=== PATIENT | female | born 1970 | race Caucasian/White ===

== ENCOUNTER 2017-09-21 05:20 | Day surgery (SDC) | payer BC ==
[2017-09-20 11:59] LABS: HEMATOCRIT 44.8 % (36.0-48.0); HEMOGLOBIN 15.8 g/dL (12-16); MCH 34.5 pg (26.0-34.0); MCHC 35.3 g/dL (31.0-37.0); MCV 97.8 fL (80.0-100.0); MEAN PLATELET VOLUME 11.5 fL (7.4-10.4); RBC 4.58 10x6/uL (4.00-5.40); WBC 6.8 10x3/uL (4.8-10.8)
[~2017-09-21 05:20] MED LIST: ACETAMINOPHEN500 M1 PO; DEXILANT30 MG; DEXILANT30 MG PO; EFFEXOR75 MG PO; MOTRIN600 MG PO; NORCO 10/325 TA1 TA1 PO; PERCOCET 5/3251 TA1 PO; PRAVACHOL20 MG PO; QUESTRAN PACK4 G/PKT PO
[2017-09-21 08:33] VITALS: BMI 33.5
--- NOTE | 2017-09-21 12:19 | NUR ---
DR FITCH AWARE OF HEART RATE AND ORDERED NO TREATMENT IN RR. PAIN MEDICATION OFFERD AMD THE PATIENT DENIES THE NEED.
[2017-09-21] MEDS ORDERED: HYDROCODONE-APA1 TAB PO (14:28)
--- NOTE | 2017-09-21 16:16 | NUR ---
1413 1 NORCO 10MG PO FOR COMPLAINTS OF PAIN. Princess ISAACS R.N.
--- NOTE | 2017-09-21 16:23 | NUR ---
1435 IV D'FILI WITH CATH INTACT. DRESSED. GIVEN DISCHARGE INFORMATION, INCLUDING MED REC, RX"S 2: NORCO 10/325MG, COLACE 100MG, RTC APPT., & [facility] OPS D/C INSTRUCTIONS. PT VOICED UNDERSTANDING. TO PRIVATE CAR PER WHEELCHAIR BY VOLUNTEER. HOME WITH FRIEND, MEHRAN. Princess ISAACS R.N.
--- NOTE | 2017-09-24 10:04 | OP ---
PATIENT NAME: BRENNAN VILLASENOR MEDICAL RECORD: [id number] :74 LOCATION:[facility] ADMISSION DATE: SURGEON: JONNY PATRICIA MD DATE OF OPERATION: 09/21/2017 PREOPERATIVE DIAGNOSIS: Non-incarcerated incisional hernia. POSTOPERATIVE DIAGNOSIS: Incarcerated incisional hernia. PROCEDURE: Open incarcerated incisional hernia repair with mesh. SURGEON: Jonny Patricia MD MARKETING PLANNER: None. BLOOD LOSS: Minimal. ANESTHESIA: General. COMPLICATIONS: None. The risks, possible complications and alternatives to procedure were explained to the patient. She elects to proceed. OPERATIVE COURSE: The patient was conveyed to the operating room electively on 09/21/2017. General anesthesia was induced by the anesthesia staff. The abdomen and genitals were sterilely prepped and draped. A transverse incision was accomplished over the hernia defect in the right groin. This appears to have been a hernia through a Pfannenstiel incision. I dissected down to the hernia sac. I sharply cleaned the external oblique fascia from around the neck of the hernia. A secondary hernia was located medially. I entered the primary hernia sac. There was incarcerated omentum, which was taken down sharply. I then sharply cleaned the peritoneal surface inside of the abdomen from some adhesions. The adhesions were omental adhesions. I tried to create a prevesicular bladder flap from between the omentum and the abdominal wall and was unable to do this medially or superiorly. I then abandoned this approach. I excised the hernia sac. I elected to place an intraabdominal mesh. I placed an oval Ventrio mesh with the rough side toward the abdominal wall and the "slick side" toward the bowels. I then reapproximated the abdominal wall muscle and fascia in the right lower quadrant. The hernia was very large and essentially had blown up the entire inguinal floor of the right. I tacked the mesh superiorly with the SecureStrap Tacker. I ensured that there was no bowel entrapped between the mesh and the abdominal wall superiorly. I also ensured that the tacker had not injured any of the bowels. I then closed the abdominal wall with multiple interrupted horizontal mattress 0 Surgidac. I incorporated a portion of the mesh with these sutures. I then overran the fascial closure with a running #1 Vicryl. I used a sandwich type technique by placing a cut polypropylene mesh on top of the fascial repair. I sutured the mesh to the underlying fascia with a running 2-0 Prolene suture. I also sutured the 2-0 Prolene to the underlying fascial repair in the middle of the repair at a couple of sites. OPERATIVE REPORT [id number] BRENNAN VILLASENOR I irrigated with normal saline. Alessia's fascia was approximated with interrupted 3-0 Vicryl. The subdermis was approximated with interrupted 3-0 Vicryl. Skin was approximated with a running intracuticular 4-0 Vicryl. A sterile dressing was applied after the Dermabond had been applied. The patient was then extubated and conveyed to the post-anesthesia care unit where she was in stable condition. I am going to plan to send her home with [place] as well as Crystal. She is not to do any lifting or straining for 6 weeks as there is going to be a high likelihood of recurrence of the hernia due to its size and how thin her tissues were in the right lower quadrant. TRANSINT:[id number] Voice Confirmation ID: [id number] DOCUMENT ID: [id number] JONNY PATRICIA MD at 1004 CC: [id number] DICTATION DATE: 09/21/17 1308 CREDIT PROCESSOR: 09/21/17 1354 [facility] 09/21/[address] [address]
--- NOTE | 2017-09-24 10:04 | HP ---
PATIENT: BRENNAN VILLASENOR MEDICAL RECORD: [id number] ACCOUNT: [id number] LOCATION:[facility] : 74 ADMISSION DATE: 09/21/17 HISTORY AND PHYSICAL EXAMINATION CHIEF COMPLAINT: Hernia. HISTORY OF PRESENT ILLNESS: The patient has a large incisional hernia. This appears to be an incisional hernia from her Pfannenstiel incision. It is a right-sided hernia. The risks, possible complications, alternatives to an incisional hernia repair were explained to the patient. She elects to proceed. HOME MEDICINES: Effexor. ALLERGIES: SULFA, WHICH CAUSES HIVES. SOCIAL HISTORY: Smoker, I have advised her to quit smoking. PAST MEDICAL AND SURGICAL HISTORY: Cholecystectomy, sections times 2, total abdominal hysterectomy and bilateral salpingo-oophorectomy, history of gallstone pancreatitis. REVIEW OF SYSTEMS: Negative for CVA or seizures. Negative for renal disease or hepatitis. PHYSICAL EXAMINATION: GENERAL: The patient does not appear acutely ill. She does not appear chronically ill. VITAL SIGNS: Reviewed. EARS: External ears appear normal. EYES: Extraocular movements are intact. NECK: Trachea is midline. CHEST: No intercostal retractions. PULMONARY: Nonlabored, no stridor. ABDOMEN: Reducible right inguinal incisional hernia. IMPRESSION: Incisional hernia. PLAN: Open incisional hernia repair with mesh. TRANSINT:[id number] Voice Confirmation ID: [id number] DOCUMENT ID: [id number] JONNY PATRICIA MD at 1004 CC: SCOTT JOHNSON MD and EMMETT BRADSHAW MD [id number] DICTATION DATE: 09/21/17 1224 PIANO MECHANIC APPRENTICE: 09/21/17 1236 [facility] 09/21/17 [facility] [address] [place] [address]
== END 2017-09-21 14:35 | disposition home or self-care (01) ==
LOC: D.OPS 05:20 → D.PAN 11:00 → D.OPS 12:30
PROVIDERS: Anesthesiology
DX: K43.2 Incisional hernia without obstruction or gangrene (principal); F17.200 Nicotine dependence, unspecified, uncomplicated; Z01.812 Encounter for preprocedural laboratory examination

== ENCOUNTER → 2018-07-08 06:47 | Outpatient (CLI) | payer BC ==
[~2018-07-08 06:47] MED LIST changes: +HYDROCODONE-APA1 TAB PO
== END | disposition home or self-care (01) ==
LOC: D.CT 06:47
DX: R51 Headache (principal)

== ENCOUNTER 2018-11-11 22:00 | Inpatient (IN) | payer BC ==
[~2018-11-11] VITALS: Ht 172.7 cm; Wt 104.5 kg
--- NOTE | ~2018-11-11 | CN ---
PATIENT NAME:BRENNAN VILLASENOR MEDICAL RECORD: [id number] : 74 LOCATION:[facility]2304 ADMIT DATE: 11/11/18 ACCOUNT: [id number] CONSULTING PHYSICIAN: EMMETT BRADSHAW MD REFERRING PHYSICIAN: EMMETT BRADSHAW MD DATE OF CONSULTATION: 11/12/2018 CARDIOLOGY CONSULTATION DIAGNOSES: 1. Syncope. 2. Palpitations. 3. Abnormal ECG, left bundle-branch block. 4. Tachycardia. HISTORY OF PRESENT ILLNESS: [place], had a sensation of tachycardia, lightheadedness, dizziness, and actually had melvin syncope. She did have a slight seizure activity with this and then she regained consciousness. No CPR was performed. She had an episode similar, but not as severe that did not lead to syncope while she was at work within the last month. She has not had any chest pain or chest pressure. She does have a left bundle on her EKG; however, this is not new. She has not had a cardiac workup in the past. PHYSICAL EXAMINATION: GENERAL APPEARANCE: Well-nourished, well-developed, appears stated age. Level of distress, comfortable. PSYCHIATRIC: Mental status, alert, normal affect. Orientation, oriented to time, place and person. EYES: Lids and conjunctiva, noninjected. No discharge, no pallor. ENT: Lips, teeth, gums, normal dentition. Oropharynx, no cyanosis, no pallor. NECK: Carotid arteries, bilateral normal upstroke, no bruits, no thrills. JUGULAR VEINS: No jugular venous pressure or distention. CERVICAL LYMPH NODES: Nontender, nonenlarged. THYROID: Not enlarged. Nontender. No nodules. LUNGS: Respiratory effort, unlabored. CHEST: Normal curvature. No thoracic deformity. No chest wall tenderness. Percussion, resonant. Auscultation, clear. No wheezes, no rales, no rhonchi. CARDIOVASCULAR: Precordial exam, nondisplaced. No heaves or pericardial thrills. Rate and rhythm, regular. Heart sounds, normal S1, normal S2. No S3, no gallop, no rub. Systolic murmur, not heard. Diastolic murmur, not heard. EXTREMITIES: No cyanosis, no edema. Peripheral pulses, full and equal in all extremities, except as noted. No bruits appreciated. ABDOMEN: Soft, nondistended. Normal aorta. No bruit. Nontender. No masses. Liver, nontender, no hepatomegaly. Spleen, nontender, no splenomegaly. MUSCULOSKELETAL: No joint tenderness. No joint swelling. No erythema. NEUROLOGICAL: Normal gait, normal strength, normal tone. SKIN: Warm and dry. OVERALL IMPRESSION: Syncope, most likely she had a dysrhythmia that was SVT. We will start her on Toprol-XL 25 mg a day. Get an echocardiogram and perform stress testing as an outpatient. Further care depends upon the results with the Toprol and the findings of these studies. TRANSINT:[id number] Voice Confirmation ID: [id number] DOCUMENT ID: [id number] CONSULT REPORT [id number] BRENNAN VILLASENOR, EMMETT MERLOS at 1456 CC: [id number] DICTATION DATE: 11/12/18 1007 OTR DRIVER: 11/12/18 1201 DIS IN 11/13/18 [address] [place] [address]
--- NOTE | ~2018-11-11 | HEMODYNAMI ---
PATIENT:BRENNAN VILLASENOR MEDICAL RECORD: [id number] : 74 LOCATION:[facility] D.2304 ADMISSION DATE: 11/11/18 Generatedon:11/13/20188:21 Patient name: BRENNAN VILLASENOR Patient #: [id number] SSN: : 1970 Date of study: 11/13/2018 Page: Of Hemodynamic Procedure Report Patient Data Patient Demographics Procedure consent was obtained First Name: BRENNAN Gender: Female Last Name: HAMILTON : 1970 [facility] Initial: SALUD Age: 48 year(s) Patient #: [id number] Race: Unknown Additional ID: [id number] Contact details Address: [address] [place] [address] State: [place] City: [facility] Zip code: [address] Past Medical History Allergies Allergen Reaction Date Comments Reported Sulfa drugs 11/13/2018 Admission Admission Data Admission Date: 11/11/2018 Admission Time: 23:45 [facility] Procedure Types Cath Procedure Diagnostic Procedure LHC LHC w/Coronaries Procedure Description Procedure Date Procedure Date: 11/13/2018 Procedure Start Time: 8:12 Procedure End Time: 8:21 Procedure Staff Name Function Moi Ferris MD Performing Physician Lala Nguyen RT Monitor Adolfo Patiño RN Nurse Leandro Izquierdo RT Scrub Procedure Data Cath Procedure Fluoroscopy Diagnostic fluoroscopy Total fluoroscopy Time: 1.7 time: 1.7 min min Diagnostic fluoroscopy Total fluoroscopy dose: 528 dose: 528 mGy mGy Contrast Material Contrast Material Type Amount (ml) Isovue 300 54 Entry Location Entry Primary Successful Side Size Upsize Upsize Entry Closure Orr ccessful Closure Location (Fr) 1 (Fr) 2 (Fr) Remarks Device Remarks Radial Right 6 Fr Mechanical artery Short Compression Estimated blood loss: 5 ml Diagnostic catheters Device Type Used For End Catheter Placement DIAGNOSTIC Roll 110cm 5 LV Angiography Fr catheter ([id number]) DIAGNOSTIC Roll 110cm 5 Left Coronary Fr catheter ([id number]) Angiography DIAGNOSTIC Roll 110cm 5 Right Coronary Fr catheter ([id number]) Angiography Procedure Complications No complications Procedure Medications Medication Administration Route Dosage Oxygen etCO2 Nasal cannula 2 l/min Heparin Flush Bag added to field 2 bags (1000units/500ml NS) 0.9% NaCl I.V. 100 ml/hr Lidocaine 2% added to field 20 Radial Cocktail added to field 1 syringe (Verapomil 2mg/Nitro 400mcg/Heparin 1500units) Fentanyl I.V. 100 mcg Versed I.V. 2 mg Radial Cocktail I.A. 1 syringe (Verapomil 2mg/Nitro 400mcg/Heparin 1500units) Fentanyl I.V. 100 mcg Versed I.V. 2 mg Hemodynamics Rest Heart Rate: 93 (bpm) Snapshots Pre Cath Intra NCS Post Cath Vital Signs Time Heart Resp SPO2 etCO2 NIBP (mmHg) Rhythm Pain Sedation Rate (ipm) (%) (mmHg) Status Level (bpm) 7:54:49 90 16 99 38.5 137/82(105) NSR 0 (11) 10(A) , No pain 8:00:29 93 16 100 36.2 132/81(115) NSR 0 (11) 10(A) , No pain 8:04:45 87 17 99 38.4 131/68(105) NSR 0 (11) 10(A) , No pain 8:10:02 92 16 95 29.4 113/70(81) NSR 0 (11) 10(A) , No pain 8:14:14 96 17 96 27.9 111/72(82) NSR 0 (11) 9(A) , No pain 8:18:28 94 16 96 27.1 118/61(94) NSR 0 (11) 9(A) , No pain 8:20:44 88 16 90 38.5 106/62(90) NSR 0 (11) 9(A) , No pain Medications Time Medication Route Dose Verified Delivered Reason Notes Effectiveness by by 7:56:19 Oxygen etCO2 2 l/min Moi Mata Per Nasal Barrington Patiño RN physician cannula 7:56:27 Heparin Flush added 2 bags Moi Mata used for Bag to Barrington Patiño dock operations supervisor (1000units/500ml field NS) 7:56:37 0.9% NaCl I.V. 100 Moi Mata Per ml/hr Barrington Patiño RN physician 7:56:45 Lidocaine 2% added 20ml Moi Mata used for to vial Barrington Patiño RN procedure field 7:56:56 Radial Cocktail added 1 Moi Mata used for (Verapomil to syringe Barrington Patiño RN procedure 2mg/Nitro field 400mcg/Heparin 1500units) 8:10:51 Fentanyl I.V. 100 mcg Moi Mata for sedation Barrington Patiño RN 8:10:58 Versed I.V. 2 mg Moi Mata for sedation Barrington Patiño RN 8:13:32 Radial Cocktail I.A. 1 Moi Moi for (Verapomil syringe Barrington Ferris MD vasodilation 2mg/Nitro 400mcg/Heparin 1500units) 8:13:41 Fentanyl I.V. 100 mcg Moi Mata for sedation Barrington Patiño RN 8:13:47 Versed I.V. 2 mg Moi Mata for sedation Barrington Patiño RN Procedure Log Time Note 7:16:58 Time tracking: Call back (After hours or weekends) 7:17:09 Plan of Care:Hemodynamics will remain stable., Cardiac rhythm will remain stable., Comfort level will be maintained., Respiratory function will remain adequate., Patient/ family verbilizes understanding of procedure., Procedure tolerated without complication., Recovers from procedure without complications.. 7:30:54 Adolfo Patiño RN sent for patient. Start room use. 7:43:25 Patient received from ICU to [facility] 1 Alert and oriented. Tansferred to table in Supine position. 7:43:27 Warm blankets applied, and kathy hugger turned on for patient comfort. 7:43:27 Correct patient and procedure confirmed by team. 7:43:29 Signed procedure consent form obtained from patient. 7:43:29 ECG and BP/O2 sat monitors applied to patient. 7:43:30 Full Disclosure recording started 7:53:33 Vital chart was started 7:53:36 Rhythm: sinus rhythm 7:56:19 Oxygen 2 l/min etCO2 Nasal cannula was administered by Adolfo Patiño RN; Per physician; 7:56:27 Heparin Flush Bag (1000units/500ml NS) 2 bags added to field was administered by Adolfo Patiño RN; used for procedure; 7:56:37 0.9% NaCl 100 ml/hr I.V. was administered by Adolfo Patiño RN; Per physician; 7:56:45 Lidocaine 2% 20ml vial added to field was administered by Adolfo Patiño RN; used for procedure; 7:56:45 H&P Date Dictated: 11/12/2018 Within 30 days and on chart.. 7:56:46 Pre-procedure instructions explained to patient. 7:56:47 Pre-op teaching completed and patient verbalized understanding. 7:56:52 Family in patients room. 7:56:54 Patient NPO since Midnight. 7:56:56 Radial Cocktail (Verapomil 2mg/Nitro 400mcg/Heparin 1500units) 1 syringe added to field was administered by Adolfo Patiño RN; used for procedure; 7:57:00 Patient allergic to Sulfa drugs 7:57:03 Is the patient allergic to Iodine/contrast media? No. 7:57:04 Is patient on blood thinner?No 7:57:06 Patient diabetic? No. 7:57:09 Previous problem with sedation/anesthesia? No ? 7:57:09 Snore? Yes 7:57:10 Sleep apnea? No 7:57:11 Deviated septum? No 7:57:12 Opens mouth fully? Yes 7:57:13 Sticks out tongue? Yes 7:57:14 Airway obstruction? No ? 7:57:16 Dentures? No ? 7:57:18 Pre procedure: right dorsailis pedis pulse 2+ Normal; easily identifiable; not easily obliterated 7:57:20 Modified Yefri's test Ulnar < 7 seconds 7:57:22 Patient pain scale 0/10 ?. 7:57:32 IV patent on arrival in left forearm with 0.9% NaCl at KVO. 7:57:35 Lab results completed and on chart. 7:57:39 Right Radial & Right Groin area was prepped with chlora-prep and draped in sterile fashion 7:57:40 Alarms reviewed by R. N. 7:57:40 Sharps counted by scrub and verified by R.N. 7:57:43 Use device set Radial Dx or PCI 7:57:44 ACIST Syringe (39339) opened to sterile field. 7:57:44 Medline Cath Pack ([id number]) opened to sterile field. 7:57:45 Bag Decanter () opened to sterile field. 7:57:45 DIAGNOSTIC WIRE .035 260cm J wire (740713) opened to sterile field. 7:57:46 ACIST Hand Control (26764) opened to sterile field. 7:57:46 ACIST Manifold (67333) opened to sterile field. 7:57:47 Tegaderm 4 x 4 (1626W) opened to sterile field. 7:57:48 MBrace Wrist Support ([id number]) opened to sterile field. 7:57:48 SHEATH 6FR Slender (57-6785) opened to sterile field. 8:00:31 IV Extension Set opened to sterile field. 8:01:12 Physician paged 8:02:52 Zero performed for pressure channel P1 8:02:56 Zero performed for pressure channel P1 8:03:29 Baseline sample Acquired. 8:10:21 Final Timeout: patient, procedure, and site verified with staff and physician. All members of the team are in agreement. 8:10:23 Right Radial & Right Groin site verified by team. 8:10:26 Physical assessment completed. ASA score P 2 - A patient with mild systemic disease as per Moi Ferris MD. 8:10:29 Sedation plan: IV Moderate Sedation Medication:Versed, Fentanyl 8:10:51 Fentanyl 100 mcg I.V. was administered by Adolfo Patñio RN; for sedation; 8:10:58 Versed 2 mg I.V. was administered by Adolfo Patiño RN; for sedation; 8:12:04 Procedure started. 8:12:33 Local anesthetic to right radial artery with Lidocaine 2% by Moi Ferris MD.INITIAL ACCESS ONLY 8:13:11 A 6 Fr Short sheath was inserted into the Right Radial artery 8:13:32 Radial Cocktail (Verapomil 2mg/Nitro 400mcg/Heparin 1500units) 1 syringe I.A. was administered by Moi Ferris MD; for vasodilation; 8:13:41 Fentanyl 100 mcg I.V. was administered by Adolfo Patiño RN; for sedation; 8:13:47 Versed 2 mg I.V. was administered by Adolfo Patiño RN; for sedation; 8:13:54 A DIAGNOSTIC Roll 110cm 5 Fr catheter (407312) was advanced over the wire and used for LV Angiography. 8:14:59 LV gram done using DIOR 8:15:04 Injector settings: Ml/sec: 5, Volume: 15, 8:15:16 A DIAGNOSTIC Roll 110cm 5 Fr catheter (326874) was advanced over the wire and used for Left Coronary Angiography. 8:17:13 A DIAGNOSTIC Roll 110cm 5 Fr catheter (174961) was advanced over the wire and used for Right Coronary Angiography. 8:17:30 Catheter removed. 8:17:38 Sheath removed intact; hemostasis achieved with Mechanical Compression to the Right Radial artery. 8:17:48 Procedure ended.(Physican Out) 8:18:01 Fluoroscopy time 01.70 minutes. 8:18:13 Flurop Dose total: 528 8:18:13 Fluoroscopy dose: 528 mGy 8:18:31 Contrast amount:Isovue 300 54ml. 8:18:32 Sharps counted by scrub and verified by R.N. 8:18:34 TR band inflated with 12cc of air. 8:18:36 Insertion/operative site no bleeding no hematoma. 8:18:43 Post right radial artery:stable, clean and dry 8:18:45 Post Procedure Pulses reassessed and unchanged 8:18:49 Post-procedure physical assessment completed. ASA score P 2 - A patient with mild systemic disease as per Moi Ferris MD. 8:18:53 Post procedure rhythm: unchanged. 8:18:55 Estimated blood loss: 5 ml 8:18:57 Post procedure instruction explained to patient.Patient verbalizes understanding. 8:18:57 Patient needs reinforcement of post procedure teaching. 8:19:10 Procedure Complication : No complications 8:19:13 See physician's report for complete and final results. 8:19:16 TR BAND Standard ([id number]) opened to sterile field. 8:19:33 Procedure and supply charges have been captured, reviewed, submitted and are correct. 8:20:44 Vital chart was stopped 8:20:46 Report given to ICU. 8:20:50 Patient transfered to ICU with Bed. 8:20:59 Procedure ended. 8:20:59 Full Disclosure recording stopped 8:21:02 End room use (Document Last) Device Usage Item Name Manufacture Quantity Catalog Hospital Part Current Minimal Lot# / Number Charge Number Stock Stock Serial# Code ACIST Acist 1 87485 683928 053241 469056 20 Syringe Medical (78185) Systems Inc Medline Medline 1 [id number] 344183 41365 652959 5 Cath Pack ([id number]) Bag Microtek 1 2001S 591789 77014 086795 5 Decanter Medical Inc. () DIAGNOSTIC St Jefry 1 759367 912310 616767 155349 30 WIRE .035 260cm J wire (350476) ACIST Hand Acist 1 90254 936361 643232 289985 5 Control Medical (42438) Systems Inc ACIST Acist 1 25823 366696 737487 874406 5 Manifold Medical (56969) Systems Inc Tegaderm 4 3M 1 1626W 015810 607220 270175 5 x 4 (1626W) MBrace Advanced 1 140-0250-00 780461 85648 998343 5 Wrist Vascular Support Dynamics ([id number]) SHEATH 6FR Terumo 1 [id number] 076393 523995 230649 5 Slender (80-1060) IV Hospira 1 33369-96 780631 48458 524274 5 Extension Set DIAGNOSTIC Terumo 1 93-2108 557475 258287 976937 5 Roll 110cm 5 Fr catheter (295129) TR BAND Terumo 1 [id number] 432442 520717 069751 40 Standard ([id number]) Signature Audit [place] Stage Time Signature Unsigned Intra-Procedure 11/13/2018 Lala 8:21:12 AM Counts RT(R) Signatures Monitor : Lala Signature : Counts RT Date : Time : [id number] [place] [address]
--- NOTE | ~2018-11-11 | DS ---
PATIENT:BRENNAN HUNT :74 MEDICAL RECORD: [id number] DISCHARGE SUMMARY ADMISSION DATE: 11/11/18 DISCHARGE DATE: 11/13/18 DISCHARGE DIAGNOSES: 1. Syncope. 2. Palpitations. HOSPITAL COURSE: Ms. Hunt presents with syncope and palpitations. Echocardiogram suggested that the inferior wall did not move well. This is secondary to the left bundle branch block that she has. Cardiac catheterization was normal. She was discharged home with Toprol-XL 25 mg every day. We will follow up with [facility] in 1 month. TRANSINT:[id number] Voice Confirmation ID: [id number] DOCUMENT ID: [id number] EMMETT BRADSHAW MD at 1457 CC: [id number] DICTATION DATE: 11/13/18820 EMERGENCY DISPATCHER: 11/14/18 0540 DIS IN 11/13/18 [id number] [place] [address]
--- NOTE | ~2018-11-11 | OP ---
PATIENT NAME: BRENNAN VILLASENOR MEDICAL RECORD: [id number] :74 [facility].2304 ADMISSION DATE:11/11/18 SURGEON: EMMETT BRADSHAW MD DATE OF OPERATION: 11/13/2018 PROCEDURES: 1. Left heart catheterization. 2. Selective coronary angiography. 3. Left ventriculogram. INDICATION: Syncope, abnormal ECG, abnormal echo. PROCEDURE PERFORMED: After informed consent was obtained and after a detailed description of risks, benefits as well as alternative therapies, the patient elected to proceed with angiogram and heart catheterization. The right radial area was prepped and draped in normal sterile fashion. Right radial artery was cannulated via modified Seldinger technique with placement of 5-Khmer sheath. All catheters exchanged through this sheath. FINDINGS: The left ventriculogram was performed in standard 30-degree DIOR view, reveals good cardiac wall motion throughout all segments. Overall ejection fraction estimated 60%. SELECTIVE CORONARY ANGIOGRAPHY: Left main, left anterior descending, left circumflex, and right coronary artery are all smooth-walled vessels with no angiographic evidence of coronary artery disease. OVERALL IMPRESSION: 1. No angiographic evidence of coronary artery disease. 2. Normal left heart pressures. 3. Normal left ventricular systolic function. TRANSINT:[id number] Voice Confirmation ID: [id number] DOCUMENT ID: [id number] EMMETT BRADSHAW MD at 1456 CC: [id number] DICTATION DATE: 11/13/18 0822 LAW EXAMINER: 11/13/18 1014 DIS IN 11/13/18 [address] [place] [address]
--- NOTE | ~2018-11-11 | EC ---
PATIENT:BRENNAN VILLASENOR DATE OF SERVICE: 11/11/18 SEX: F MEDICAL RECORD: [id number] DATE OF : 74 LOCATION:[facility] AGE OF PATIENT: 48 ADMISSION DATE: 11/11/18 REFERRING PHYSICIAN: INTERPRETING PHYSICIAN: EMMETT FERRIS MD ECHOCARDIOGRAM REPORT ECHO CHARGES 4 ECHO COMPLETE Date: 11/12/18 CLINICAL DIAGNOSIS: SVT/SYNCOPE ECHOCARDIOGRAPHIC MEASUREMENTS (adult normal given) AC root (d.<3.7cm) 2.8 cm LV Septum d (<1.2 cm> 1.5 cm Valve Excursion 2.0 cm LV Septum (systole) 2.0 cm Left Atria (s.<4.0cm> 4.0 cm LVPW d(<1.2cm) 1.3 cm RV (d.<2.3cm) 2.3 cm LVPW (sytole) 1.9 cm LV diastole(<5.6CM) 4.6 cm MV E-F(>70mm/sec) cm LV systole 2.4 cm LVOT Diameter 2.0 cm MV exc.(>10mm) cm Est.ejection fraction (50-75%) % DOPPLER: LVIT cm/sec A 84.0 cm/sec E 68.0 cm/sec LA cm/sec RVSP 18.4 mmHg LVOT 79.0 cm/sec AOP1/2T m/s Asc. Ao 121 cm/sec RVOT 86.0 cm/sec RA cm/sec PA 138 cm/sec AV Gradient Peak 5.9 mmHg AV Mean 2.4 mmHg AV Area 1.9 cm MV Gradient Peak 4.8 mmHg MV Mean 2.0 mmHg MV Area cm COMMENTS: Academic Director: John BENAVIDESOE Lacrosse Coach: 1 Dr. Ferris TAPE# PACS Pericardial Effusion N DATE OF SERVICE: 11/12/2018 PROCEDURE: Echocardiogram. FINDINGS: 1. Left ventricular chamber size is within normal limits. Left ventricular systolic function is normal. Overall ejection fraction estimated at 50%. 2. Left atrium, right atrium, and right ventricle chamber sizes are within normal limits. 3. Valvular structures have normal structure and motion. ECHOCARDIOGRAM REPORT [id number] BRENNAN VILLASENOR 4. Doppler interrogation reveals trace mitral regurgitation, no other valvular insufficiency or stenosis. 5. No evidence of pericardial effusion or left ventricular thrombus. TRANSINT:[id number] Voice Confirmation ID: [id number] DOCUMENT ID: [id number] EMMETT FERRIS MD at 1456 CC: [id number] DICTATION DATE: 11/13/18 0859 SOFTWARE SECURITY CONSULTANT: 11/13/18 1015 DIS IN 11/13/18 [place] [id number] [place] [id number]
[2018-11-11 22:42] LABS: BASOPHILS 0.3 % (0-2); HEMATOCRIT 41.4 % (36.0-48.0); HEMOGLOBIN 14.9 g/dL (12-16); IMMATURE GRANULOCYTES 0.4 % (0-5); LYMPHOCYTES 37.4 % (15-50); MCH 34.4 pg (26.0-34.0); MCV 95.6 fL (80.0-100.0); MEAN PLATELET VOLUME 11.6 fL (7.4-10.4); MONOCYTES 9.7 % (2-11); NEUTROPHILS 50.2 % (40-80); PLATELET COUNT 192 10x3/uL (130-400); RBC 4.33 10x6/uL (4.00-5.40); RDW 12.2 % (11.5-14.5); WBC 7.6 10x3/uL (4.8-10.8)
[2018-11-11 22:55] LABS: APTT 21.3 SECONDS (22.8-39.4); INR 0.99 (0.85-1.17); PROTIME 12.6 SECONDS (11.6-15.0)
[2018-11-11 22:56] LABS: ALBUMIN 3.7 g/dL (3.4-5.0); ALKALINE PHOSPHATASE 80 U/L (46-116); ALT (SGPT) 96 U/L (10-68); BILIRUBIN - TOTAL 0.23 mg/dL (0.2-1.3); CALC OSMOLALITY 286 mosm/kg (275-300); CALCIUM 8.8 mg/dL (8.5-10.1); CARBON DIOXIDE 25.9 mmol/L (21.0-32.0); CHLORIDE - SERUM 103 mmol/L (98-107); CREATININE - SERUM 0.8 mg/dL (0.6-1.3); GLUCOSE 151 mg/dL (74-106); POTASSIUM - SERUM 3.6 mmol/L (3.5-5.1); PROTEIN - SERUM 7.2 g/dL (6.4-8.2); SODIUM 141 mmol/L (136-145); UREA NITROGEN 21 mg/dL (7-18); eGFR NON AFRICAN AMERICAN 82 mL/min (90-120)
[2018-11-11 23:19] LABS: CKMB 1.3 U/L (0.0-3.6); CREATINE KINASE 137 UL (21-215); MAGNESIUM - SERUM 1.7 mg/dL (1.8-2.4); TROPONIN-I < 0.017 ng/mL (0.000-0.060)
[2018-11-12] VITALS (18 sets, daily range): BP systolic 105–148; BP diastolic 45–98; Ht 172.7 cm; Wt 104.5 kg
[2018-11-13] VITALS (8 sets, daily range): BP systolic 103–137; BP diastolic 55–86
[2018-11-13 09:31] LABS: BASOPHILS 0.3 % (0-2); EOSINOPHILS 2.6 % (0-7); HEMATOCRIT 39.7 % (36.0-48.0); IMMATURE GRANULOCYTES 0.2 % (0-5); LYMPHOCYTES 29.6 % (15-50); MCH 33.8 pg (26.0-34.0); MCHC 35.3 g/dL (31.0-37.0); MCV 95.9 fL (80.0-100.0); MEAN PLATELET VOLUME 11.5 fL (7.4-10.4); MONOCYTES 11.1 % (2-11); NEUTROPHILS 56.2 % (40-80); PLATELET COUNT 190 10x3/uL (130-400); RBC 4.14 10x6/uL (4.00-5.40); RDW 12.1 % (11.5-14.5); WBC 5.9 10x3/uL (4.8-10.8)
[2018-11-13 09:46] LABS: CALCIUM 8.9 mg/dL (8.5-10.1); CARBON DIOXIDE 26.4 mmol/L (21.0-32.0); CHLORIDE - SERUM 104 mmol/L (98-107); CREATININE - SERUM 0.7 mg/dL (0.6-1.3); POTASSIUM - SERUM 4.1 mmol/L (3.5-5.1); SODIUM 139 mmol/L (136-145); eGFR NON AFRICAN AMERICAN > 90 mL/min (90-120)
[2018-11-13 09:53] LABS: CALC OSMOLALITY 277 mosm/kg (275-300); GLUCOSE 99 mg/dL (74-106); UREA NITROGEN 12 mg/dL (7-18)
== END 2018-11-13 10:24 | disposition home or self-care (01) | DRG 287 ==
LOC: D.ER 22:00 → D.ICU 23:45
PROVIDERS: Emergency Medicine; Internal Medicine Interventional Cardiology
PROC: B2151ZZ Fluoroscopy of Left Heart using Low Osmolar Contrast (ICD-10-PCS; 2018-11-13)
PROC: 4A023N7 Measurement of Cardiac Sampling and Pressure, Left Heart, Percutaneous Approach (ICD-10-PCS; 2018-11-13)
PROC: B2111ZZ Fluoroscopy of Multiple Coronary Arteries using Low Osmolar Contrast (ICD-10-PCS; principal; 2018-11-13 08:00)
DX: R55 Syncope and collapse (principal); R00.0 Tachycardia, unspecified; F17.200 Nicotine dependence, unspecified, uncomplicated; I44.7 Left bundle-branch block, unspecified; E83.42 Hypomagnesemia; R94.31 Abnormal electrocardiogram [ECG] [EKG]; R00.2 Palpitations

== ENCOUNTER → 2019-06-14 07:35 | Outpatient (CLI) | payer BC ==
[2018-11-12 01:19] VITALS: BMI 35.0
== END | disposition home or self-care (01) ==
LOC: D.RT 07:35
PROVIDERS: ATTEND Internal Medicine Pulmonary Disease
DX: J45.909 Unspecified asthma, uncomplicated (principal)

== ENCOUNTER 2019-07-18 19:00 | Outpatient (CLI) | payer BC ==
[2018-11-12 01:19] VITALS: BMI 35.0
== END 2019-07-18 23:59 | disposition home or self-care (01) ==
LOC: D.MAMMO 19:00
PROVIDERS: ATTEND Family Medicine
DX: Z12.31 Encounter for screening mammogram for malignant neoplasm of breast (principal)

== ENCOUNTER 2019-08-08 12:24 | Outpatient (CLI) | payer BC ==
[2018-11-12 01:19] VITALS: BMI 35.0
== END 2019-08-08 23:59 | disposition home or self-care (01) ==
LOC: D.MAMMO 12:24
PROVIDERS: ATTEND Family Medicine
DX: N63.0 Unspecified lump in unspecified breast (principal)